=== PATIENT | female | born 1975 | race Caucasian/White ===

== ENCOUNTER → 2017-01-04 | Outpatient (CLI) | payer BC ==
[2017-01-04 08:22] LABS: BASOPHILS # (AUTO) 0.02 10*3/UL; BASOPHILS % (AUTO) 0.3 % (0-1); EOSINOPHILS % (AUTO) 2.1 % (0-8); HEMOGLOBIN 13.4 g/dL (12.0-16.0); IMM GRAN % (AUTO) 0 % (0-5); IMM GRAN# (AUTO) 0 10*3/UL; LYMPHOCYTES # (AUTO) 1.49 10*3/uL; LYMPHOCYTES % (AUTO) 25.9 % (10-50); MEAN CORPUSCULAR HEMOGLOBIN 27.9 PG (27-31); MEAN CORPUSCULAR HGB CONC 31.2 g/dL (33-37); MEAN PLATELET VOLUME 8.5 FL (7.4-12.2); MONOCYTES # (AUTO) 0.52 10*3/UL (0.3-0.8); NEUTROPHILS % (AUTO) 62.7 % (50-80); WHITE BLOOD COUNT 5.75 10^3/uL (4.8-10.8)
[2017-01-04 08:23] LABS: PLATELET MORPHOLOGY COMMENT NORMAL MORPHOLOGY (NORM)
[2017-01-04 08:24] LABS: BILIRUBIN,URINE NEGATIVE (NEG); CLARITY,URINE CLEAR (CLEAR); GLUCOSE, URINE (UA) NEGATIVE (NEG); LEUKOCYTE ESTERASE ,URINE NEGATIVE (NEG); NITRATE,URINE NEGATIVE (NEG); PH,URINE 5.5 (5.0-8.5); PROTEIN,URINE NEGATIVE (NEG); UROBILINOGEN,URINE 0.2 mg/dL (0.2)
[2017-01-04 08:25] LABS: OCCULT BLOOD,URINE TRACE (NEG); URINE SAMPLE TYPE CLEAN CATCH URINE
[2017-01-04 08:35] LABS: BACTERIA,URINE FEW; RBC,URINE 0 /hpf; SQUAMOUS EPITHELIAL CELL,UR MODERATE
[2017-01-04 08:38] LABS: BLOOD UREA NITROGEN 11 mg/dL (7-22); BUN/CREATININE RATIO 13.75 (6-20); CALCIUM 9.3 mg/dL (8.7-10.7); CHLORIDE 103 meq/L (98-112); CREATININE 0.8 mg/dL (0.50-1.20); EST GLOMERULAR FILTRATION > 60 (>60 ml/min/1.73m(2)); GLUCOSE 105 mg/dL (78-110); POTASSIUM 4.2 meq/L (3.8-5.2); SODIUM 138 meq/L (135-145)
[2017-01-04 08:41] LABS: PROTHROMBIN TIME 10.4 secs (9.7-11.4)
--- NOTE | 2017-01-04 09:11 | EKG ---
[address] [address] Measurements Intervals Thayer Rate: 71 P: 59 GA: 168 QRS: 79 QRSD: 90 T: 58 QT: 371 QTc: 393 Interpretive Statements SINUS RHYTHM NONSPECIFIC T-WAVE ABNORMALITY No previous ECG available for comparison Electronically Signed On 01-04-17 11:42:59 MST by Jose Arevalo [email or web address]
--- NOTE | 2017-01-04 09:44 | DI ---
PA /LATERAL CHEST X-RAY, 01/04/2017 8:03 AM : Clinical History: Preoperative evaluation. Previous Exam: April 29, 2008 There is no acute soft tissue or bony abnormality. Heart size is normal. Lungs are clear. Mediastinal structures are normal. There are no pulmonary nodules. IMPRESSION: Normal chest x-ray.
== END ==
LOC: RAD 07:53
PROVIDERS: ATTEND Nurse Practitioner Family
DX: Z01.812 Encounter for preprocedural laboratory examination (principal); Z01.818 Encounter for other preprocedural examination; Z01.810 Encounter for preprocedural cardiovascular examination; M54.42 Lumbago with sciatica, left side
CPT/HCPCS: 36415; 71020; 80048; 81001; 85025; 85610; 85730; 93005; 93010

== ENCOUNTER 2017-06-04 15:25 | Emergency (ER) | payer BC ==
[2017-06-04 15:45] VITALS: RESP 18; TEMP 97.6
[2017-06-04] MEDS ORDERED: TETRACAINE 0.5% - 2 ML EYE DROPS ONE (16:28)
[2017-06-04] MEDS ORDERED: FLUORESCEIN 1 MG EYE STRIP ONE (16:29)
[2017-06-04] MEDS ORDERED: TETRACAINE 0.5% - 2 ML EYE DROPS LEFT EYE ONE (16:40)
[2017-06-04] MEDS ORDERED: FLUORESCEIN 1 MG EYE STRIP LEFT EYE ONE (16:40)
--- NOTE | 2017-06-05 00:16 | PDOC ---
Eye Complaint HPI - General Chief Complaint: Eye Problem / Injury Stated Complaint: "blurriness" left field of vision Date Seen by Provider: 06/04/17 Time Seen by Provider: 15:50 Source: POSITIVE: Patient Exam Limitations: POSITIVE: No limitations Nurse's Notes Reviewed & Considered: Yes - History of Present Illness Initial Comments: The patient is a 41 year old female. She states that approximately 28 hours ago she began to develop some "blurriness" in her left field of vision. Onset she states was gradual. She denies any eye trauma. She states she has a sensation of "the left eye being swollen". No headache. No tearing or discharge. Patient has a history of chronic back pain and is on OxyContin and oxycodone and Soma for this problem. She's had a spinal cord stimulator placed. No flashes or scotomata. Patient does not wear contact lenses. She does were glasses. 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 DENIES: Pain, Burning, Itching, Sensitivity to Light, Redness, Matting, Eyelid Swelling, Foreign Body Sensation, Double Vision, Other Context: DENIES: Foreign Body, Direct Trauma, Projectile Injury, Penetration Injury, Chemical Exposure, Eyes Washed at Scene, Welding Arc Exposure, Tanning Torres Exposure, Wearing Reading Glasses, Wearing Protect. Glasses, Soft Contact Lenses, Hard Contact Lenses, Recent Contact w/ Illness, [place] Eye, Other Concurrent Injuries: DENIES: Neck, Head, Back, Chest, Abdomen, Extremities, Face , Other Modifying Factors: REPORTS: Nothing Exacerbates Similar Symptoms Previously: No Recent Care Received: REPORTS: Denies Any Prior Injuries Related to Current Complaint?: No - Patient Home Medications Home Medications: Home Medications Cranberry Fruit [Cranberry] 400 mg PO DAILY #30 06/14/12 One Daily Multivitamin 1 tab ORAL QD #30 tab 06/14/12 Carisoprodol 1 tab ORAL TID PRN #63 tab 03/01/13 Calcium Carb/Vitamin D3/Vit K1 [Viactiv Soft Chew Tablet] 1 each PO DAILY tab 12/14/15 Oxycodone HCl 1 tab PO Q4-6H tab 12/14/15 Escitalopram Oxalate [Lexapro] 1 tab PO DAILY #30 tab 11/03/16 Valacyclovir HCl [Valtrex] 2 tab PO Q12H #12 tab 11/28/16 Potassium 1 tab PO QD tab 01/02/17 Hydroxyzine HCl 1 tab PO QID #40 tab 01/24/17 Magnesium Oxide 400 mg PO QD tab 05/17/17 Oxycodone HCl [Oxycodone Hcl Er] 15 mg PO BID tab 05/17/17 Levothyroxine Sodium 1 tab PO before breakfast #15 tab 05/18/17 Levothyroxine Sodium [Synthroid] 1 tab PO DAILY #15 tab 05/18/17 - Patient Allergies Allergies/Adverse Reactions: Allergies Allergy/AdvReac Type Severity Reaction Status Date / Time adhesive tape Allergy Severe Blisters Verified 06/04/17 15:31 sulfamethoxazole Allergy Intermediate HIVES Verified 06/04/17 15:31 [From Bactrim] trimethoprim [From Bactrim] Allergy Intermediate HIVES Verified 06/04/17 15:31 telithromycin [From KETEK] Allergy Unknown NOT Verified 06/04/17 15:31 APPLICABLE tramadol HCl [From Ultram] Allergy Unknown NOT Verified 06/04/17 15:31 APPLICABLE buprenorphine [From Butrans] AdvReac Severe leaves Verified 06/04/17 15:31 appearance of chemical burn codeine AdvReac Intermediate NAUSEA Verified 06/04/17 15:31 topomax AdvReac Unknown increased Uncoded 06/04/17 15:31 intraoccular pressure Past Medical History - heen HEENT History: Denies History Cardiovascular History: Denies History Respiratory History: Denies History Gastrointestinal History: Denies History Genitourinary History: Denies History Endocrine History: Hypothyroidism Musculoskeletal History: Back Pain, Back Injury Prosthesis or Implant: Yes Additional Musculoskeletal History: FUSIONS [id number], S1 Additional Neurological History: SPINE STIMULATOR Blood Disorders: Denies History Psychiatric History: Denies History History of Sexually Transmitted Diseases: No Female Reproductive History: Other (please comment) Additional Female Reproductive History: TL LMP: 1.5 WEEKS Obstetrical History: Denies History Cancer History: Denies History In Past Year Been Physically Harmed or Verbally Threatened: No History of MDRO: No History of Other Communicable Diseases: No Tobacco Use: Former Smoker Alcohol Use: Rarely Substance Use Type: None Previous Surgical History: No Past Medical History Reviewed: Reviewed - No Changes ROS - Limitations ROS Limitations: No Limitations Constitution: REPORTS: Denies Symptoms Cardiovascular: REPORTS: Denies Cardiac Symptoms Respiratory: REPORTS: Denies Resp Symptoms Neurological: REPORTS: Denies Neuro Symptoms Gastrointestinal: REPORTS: Denies GI Symptoms Endocrine: REPORTS: Denies Symptoms Musculoskeletal: REPORTS: Denies MS Symptoms Genitourinary: REPORTS: Denies Symptoms Eyes: REPORTS: Vision Changes (As above) ENT: REPORTS: Denies Symptoms Skin: REPORTS: Denies Skin Symptoms Lympathic: REPORTS: Denies Lympathic Symptoms Immunologic: POSITIVE: Denies Symptoms Psychiatric: POSITIVE: Denies Psych Symptoms Eye Complaint Physical Exam - General Appearance General Appearance: POSITIVE: Alert, Cooperative, No Acute Distress, No Evidence of Trauma - Visual Acuity / Pupil Size Visual Acuity: 20/200: Left (uncorrected; 20/70 corrected), 20/50: Right ( uncorrected; 20/30 corrected) Pupil Size: 4 mm: Bilateral (PERRLA) - HEENT Head / Face: POSITIVE: Atraumatic, Normal Inspection, No Facial Swelling Eyes: POSITIVE: Inspection Normal, PERRL, EOM's Intact, Eyelids Uninjured, Conjunctivae Uninjured, Fluorescein Exam Normal, No Nystagmus, No Globe Trauma, Sclera Normal, Normal Corneal Inspection, Normal Fundoscopic Exam, Ant. Chamber Nml Inspect., Posterior Segments Normal, No Papilledema Ears: POSITIVE: Ears Normal Inspection, TM Normal Inspection, Auricle Normal, External Canal Normal Nose: POSITIVE: Inspection Normal, No Apparent Trauma, Nares Normal, No CSF Leak Oropharynx: POSITIVE: External Inspection Nml, Pharynx Inspect. Nml, Airway Intact, Voice Normal, Moist Mucous Membranes, No Oral Injury, Lips Normal, Gums Normal, No Drooling, No Thrush, Normal Gag Reflex Dental: POSITIVE: No Dental Injury - Skin Skin: POSITIVE: Normal Color, No Skin Rash - Neck / Back Neck/Back: POSITIVE: Normal Inspection, Non-Tender, Painless ROM - Respiratory / Cardiovascular Respiratory / CVS: POSITIVE: No Respiratory Distress, Breath Sounds Normal, Regular Rate/Rhythm, Heart Sounds Normal Peripheral Pulses: Radial (R): 2+, Radial (L): 2+ - Neurological / Psychological Neuro / Psych: POSITIVE: Oriented to Person, Oriented to Place, Oriented to Time , CN's Normal as Tested, Normal Speech, Normal Cognition, Appropriate Mood, Appropriate Affect Eye Complaint Progress - Patient's Progress Pain Medication Addressed: POSITIVE: Not Applicable School/Work Release Addressed: POSITIVE: Not Applicable Re-Examine Time:: 16:45 Re-Examine Comment: Case discussed with Dr. Vega, shut off worker in [place]. Patient to follow-up with him in the office tomorrow. Status: POSITIVE: Unchanged, Re-Examined - Consult Consult (If Yes, Name of Consulting MD & Time Called): Yes (Dr. Vega, ophthalmology, [id number]) Consulting MD will see pt:: POSITIVE: In Office Counseled: POSITIVE: Patient, RE: DX, RE: Need for F/U Patient Care Time - Estimated PCT Patient Care Time (In Minutes): 45 Vital Signs - VS Reviewed Vital Signs Reviewed: Yes Discharge Clinical Impression: Visual blurriness, Visual changes Discharge Disposition: Discharged to Home Condition: Fair Patient Instructions Given at Discharge: Blurred Vision (ED) Additional Instructions: I am not sure why you're having these visual changes in your left eye. Your eye examination in the emergency room is normal except for your reported decreased acuity in the left eye, down to 20/200. I discussed your case with Dr. Vega, shut off worker in [place]. He is asked to see you tomorrow morning for reevaluation. His phone number is ; please call his office tomorrow morning and arrange to be seen by him in his office tomorrow. Return here anytime if condition worsens or if we can be of any further service whatsoever. Follow Up With: HUGO FARFAN [Primary Care Provider] - (Instructions as above. Follow-up with Dr. Vega tomorrow. Return here anytime as necessary.)
== END 2017-06-04 17:29 | disposition home or self-care (01) ==
LOC: ER 15:25
DX: H53.8 Other visual disturbances (principal); E03.9 Hypothyroidism, unspecified; M54.5 Low back pain
CPT/HCPCS: 99283

== ENCOUNTER → 2017-06-16 | Outpatient (CLI) | payer BC | LOC: MOB LAB 16:16 | PROVIDERS: ATTEND Physician Assistant Medical | DX: N30.01 Acute cystitis with hematuria (principal) | CPT/HCPCS: 87088 ==

== ENCOUNTER → 2017-06-20 | Outpatient (CLI) | payer BC | LOC: MOB LAB 16:23 | PROVIDERS: ATTEND Nurse Practitioner Family | DX: N89.8 Other specified noninflammatory disorders of vagina (principal) | CPT/HCPCS: 87480; 87510; 87660 ==

== ENCOUNTER → 2017-06-21 | Outpatient (CLI) | payer BC ==
[2017-06-21 09:51] LABS: HEMOGLOBIN A1C 5.94 % (4.2-6.0)
== END ==
LOC: LAB 08:21
PROVIDERS: ATTEND Pediatrics Pediatric Endocrinology
DX: E03.9 Hypothyroidism, unspecified (principal); E55.9 Vitamin D deficiency, unspecified; R53.83 Other fatigue; R63.5 Abnormal weight gain
CPT/HCPCS: 36415; 82306; 83036; 84439; 84443; 84481

== ENCOUNTER → 2017-06-30 | Outpatient (CLI) | payer BC ==
--- NOTE | 2017-06-30 13:43 | DI ---
MRI BRAIN W/WO CN,06/30/2017 12:35 PM: Clinical History: Vision changes. Previous Exam: There is a previous history of an MRI of the brain, but these images are not available for review. Findings: Multiplanar MR images are obtained through the brain both before and after the intravenous administra tion of 20 mL of ProHance. The ventricles and other CSF containing spaces are normal and symmetric. There is no mass, hemorrhage nor of midline shift. There is no abnormally restricted diffusion. There is no abnormal FLAIR signal. The cerebellopontine angles are unremarkable. The internal auditory canals are also unremarkable. The intraorbital structures are unremarkable. The paranasal sinuses are also unremarkable. The midline structures are unremarkable. Visualized portions of the upper cervical spine are also unr emarkable. There is no abnormal enhancement. Impression: No acute intracranial pathology.
== END ==
LOC: MRI 12:30
PROVIDERS: ATTEND Nurse Practitioner Family
DX: H53.9 Unspecified visual disturbance (principal)
CPT/HCPCS: 70553